=== PATIENT | male | born 1985 | race American Indian/Alaskan Native ===

== ENCOUNTER 2016-06-04 11:05 | Emergency (ER) | payer OTHER ==
[2016-06-04 11:22] VITALS: BP 123/79
[2016-06-04] MEDS ORDERED: MOTRIN PO ONE (13:47)
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
--- NOTE | 2016-06-04 14:33 | XRay Report ---
LUMBOSACRAL SPINE, 3 VIEWS: History: Back pain Findings: The vertebral bodies, disk spaces and posterior elements are intact. No compression deformity or malalignment. The SI joints are symmetric and unremarkable. Mild facet arthropathy is noted which is most pronounced at L2-3. Impression: 1. No evidence for acute injury to the lumbar spine.
== END 2016-06-04 15:12 | disposition home or self-care (01) ==
LOC: ED 11:05
DX: M54.5 Low back pain (principal); F17.200 Nicotine dependence, unspecified, uncomplicated; F12.10 Cannabis abuse, uncomplicated; V49.49XA Driver injured in collision with other motor vehicles in traffic accident, initial encounter; Y92.488 Other paved roadways as the place of occurrence of the external cause; Y93.89 Activity, other specified; Y99.8 Other external cause status
CPT/HCPCS: 72100; 99283

== ENCOUNTER 2017-11-28 18:34 | Emergency (ER) | payer SELFPAY ==
[2017-11-28 21:52] VITALS: BP 136/87
== END 2017-11-29 01:45 | disposition left against medical advice (07) ==
LOC: ED 18:34
DX: M79.672 Pain in left foot (principal); V09.20XA Pedestrian injured in traffic accident involving unspecified motor vehicles, initial encounter; Y93.89 Activity, other specified; Y99.8 Other external cause status; Y92.488 Other paved roadways as the place of occurrence of the external cause; Z53.21 Procedure and treatment not carried out due to patient leaving prior to being seen by health care provider

== ENCOUNTER → 2017-11-28 | Emergency (ER) | payer SELFPAY ==
[2017-11-28 19:13] VITALS: BP 136/87
== END ==
LOC: EDBD → ED 18:40 → MERGE 18:40
DX: M79.672 Pain in left foot (principal); Z53.21 Procedure and treatment not carried out due to patient leaving prior to being seen by health care provider